=== PATIENT | male | born 1950 | race Caucasian/White ===

== ENCOUNTER → 2017-02-17 | Outpatient (REF) | payer BC | LOC: M LAB REF 16:35 | PROVIDERS: ATTEND Internal Medicine | DX: R51 Headache (principal) ==

== ENCOUNTER → 2017-06-22 | Outpatient (CLI) | payer BC, MEDICARE ==
--- NOTE | 2017-06-26 09:02 | SLEEPCENT ---
DATE OF PROCEDURE: 06/22/2017 ORDERED BY: Bryanna Torres INTERPRETATION: Nocturnal polysomnography was performed due to concern for the obstructive sleep apnea syndrome in this patient with a history of excessive somnolence and nonrestorative sleep. 7 hours and 49 minutes of data were reviewed. There were 332 minutes of sleep identified. Sleep latency was prolonged at 12 minutes. REM latency was prolonged at 113 minutes. Sleep architecture showed fragmentation. Progression was well maintained. Overall sleep efficiency was 75%. The patient's EKG showed a sinus rhythm with an average heart rate of 75 beats per minutes. EEG showed normal wave forms for awake and sleep. There were 46 respiratory events identified of 10 seconds in duration or greater for an apnea-hypopnea index of 8.3. The events were primarily obstructive not exclusive to sleep stage nor body posture. Snoring was noted in the study and arousals from respiratory events occurred 2.7 times per hour. There was significant limb activity particularly early in the study. Limb movement arousal index was elevated at 9.6. IMPRESSION: 1. Obstructive sleep apnea syndrome (G47.33). Apnea-hypopnea index 8.3. 2. Periodic limb movement disorder (G47.61). Limb movement arousal index 9.6. RECOMMENDATION: The patient should be encouraged to return to the sleep disorder center for pressure therapy. In the interim, alcohol and sedative avoidance should be practiced and caution exercised during the operation of motor vehicles. Pending response to pressure therapy, interventions to reduce the frequency of arousal from limb activity may also be helpful. cc: Franklin Hutson Jr, MD
== END ==
LOC: M SLEEP 19:36
PROVIDERS: ATTEND Nurse Practitioner Adult Health
DX: G47.30 Sleep apnea, unspecified (principal)

== ENCOUNTER → 2017-10-09 | Outpatient (CLI) | payer MEDICARE ==
--- NOTE | 2017-10-10 14:53 | REP ---
REASON: History of influenza. FINDINGS: The superior mediastinal structures are midline. The cardiac silhouette is unremarkable in size, shape, and position. The diaphragmatic surfaces of the lungs are regular, and the costophrenic angles are clear. The pulmonary shanks are clear. The imaged osseous structures are intact. IMPRESSION: There is no acute cardiopulmonary disease. Signed by Kumar Santos DO 10/10/2017 02:57 P
== END ==
LOC: M WUC 14:05
PROVIDERS: ATTEND Physician Assistant
DX: J09.X2 Influenza due to identified novel influenza A virus with other respiratory manifestations (principal)

== ENCOUNTER → 2018-08-23 | Outpatient (CLI) | payer MEDICARE | LOC: M WUC 16:28 | DX: S16.1XXA Strain of muscle, fascia and tendon at neck level, initial encounter (principal); S29.012A Strain of muscle and tendon of back wall of thorax, initial encounter | CPT/HCPCS: 72052 ==

== ENCOUNTER → 2019-01-24 | Outpatient (REF) | payer MEDICARE ==
[2019-01-25 18:53] LABS: FOLATE 9.3 NG/ML
== END ==
LOC: M LAB REF 16:38
PROVIDERS: ATTEND Internal Medicine
DX: R68.82 Decreased libido (principal); G62.9 Polyneuropathy, unspecified

== ENCOUNTER → 2019-02-01 | Outpatient (REF) | payer MEDICARE | LOC: M LAB REF 09:29 | PROVIDERS: ATTEND Internal Medicine | DX: N52.9 Male erectile dysfunction, unspecified (principal); R68.82 Decreased libido ==

== ENCOUNTER → 2019-03-17 | Outpatient (CLI) | payer MEDICARE ==
[~2019-03-17] MED LIST: ISOVUE-370 76% 100ML VIAL (Q9967) As Ordered ONE
--- NOTE | 2019-03-17 18:15 | REP ---
REASON: Headaches. PRIORS: None. TECHNIQUE: 4.5 mm contiguous transaxial sections were obtained from the skull base to the cerebral convexities with thin cuts through the posterior fossa with and without the administration of intravenous contrast. FINDINGS: The ventricles and sulci are consistent with the patient's age. There are no extra-axial fluid collections. There is no mass effect on the non-contrast scan and there are no enhancing mass lesions on the post contrast scan. The deep cerebral white matter is consistent with the patient's age. The orbital and petrous structures, cerebellopontine angles and posterior fossa are unremarkable. The sella turcica, cavernous and paracavernous structures are essentially unremarkable. The visualized portions of the paranasal sinuses and mastoid air cells are clear. IMPRESSION: Essentially unremarkable CT examination of the brain. If the patient is a candidate for MRI it should be obtained as it is more sensitive in detecting intracranial lesions that could be responsible for causing headaches than is contrast enhanced CT. Electronically Signed by Kumar Santos DO 03/17/2019 07:04 P
== END ==
LOC: M RAD 16:44
PROVIDERS: ATTEND Physician Assistant
DX: R51 Headache (principal)
CPT/HCPCS: 70470; Q9967

== ENCOUNTER → 2019-03-17 | Outpatient (CLI) | payer MEDICARE ==
[2019-03-17 16:42] LABS: HEMATOCRIT 42.8 % (42.0-52.0); HEMOGLOBIN 13.9 g/dl (13.5-17.5); MEAN CORPUSCULAR HEMOGLOBIN 32.7 pg (27.0-33.0); MEAN CORPUSCULAR HGB CONC 32.5 g/dl (32.0-36.5); MEAN CORPUSCULAR VOLUME 100.7 fl (80.0-96.0); PLATELET COUNT, AUTOMATED 211 10^3/uL (150-450); RED BLOOD COUNT 4.25 10^6/uL (4.30-6.10); WHITE BLOOD COUNT 6.2 10^3/uL (4.0-10.0)
[2019-03-17 17:19] LABS: ERYTHROCYTE SEDIMENTATION RATE 21 mm/hr (0-20)
[2019-03-17 17:20] LABS: ALBUMIN 4.3 GM/DL (3.2-5.2); BILIRUBIN,TOTAL 0.6 MG/DL (0.2-1.0); C REACTIVE PROTEIN QUANTITATIV 0.3 MG/DL (0.00-0.30); CALCIUM LEVEL 8.9 MG/DL (8.8-10.2); CREATININE FOR GFR 1.31 MG/DL (0.70-1.30); FREE T4 0.86 NG/DL (0.76-1.46); GLOMERULAR FILTRATION RATE 58.3 (>49); POTASSIUM SERUM 5.7 MEQ/L (3.5-5.1); THYROID STIMULATING HORMONE 1.03 uIU/ML (0.358-3.740); TOTAL PROTEIN 8.1 GM/DL (6.4-8.2)
[2019-03-21 00:06] LABS: Lyme Disease IgG/IgM Antibodie <0.91 ISR (0.00-0.90); Lyme Disease IgM Ab Quantitati <0.80 index (0.00-0.79)
== END ==
LOC: M WUC 15:15
PROVIDERS: ATTEND Physician Assistant
DX: R51 Headache (principal)

== ENCOUNTER → 2019-03-30 | Outpatient (REF) | payer MEDICARE | LOC: M LAB REF 10:07 | PROVIDERS: ATTEND Surgery | DX: G44.89 Other headache syndrome (principal) ==

== ENCOUNTER → 2019-04-27 | Outpatient (REF) | payer MEDICARE | LOC: M LAB REF 17:34 | PROVIDERS: ATTEND Internal Medicine | DX: R79.82 Elevated C-reactive protein (CRP) (principal) ==

== ENCOUNTER → 2019-05-11 | Outpatient (REF) | payer MEDICARE | LOC: M LAB REF 16:46 | PROVIDERS: ATTEND Internal Medicine | DX: R79.82 Elevated C-reactive protein (CRP) (principal) ==

== ENCOUNTER → 2019-05-25 | Outpatient (REF) | payer MEDICARE | LOC: M LAB REF 16:58 | PROVIDERS: ATTEND Internal Medicine | DX: R79.82 Elevated C-reactive protein (CRP) (principal) ==

== ENCOUNTER → 2019-06-22 | Outpatient (REF) | payer MEDICARE | LOC: M LAB REF 17:04 | PROVIDERS: ATTEND Internal Medicine | DX: R51 Headache (principal); R79.82 Elevated C-reactive protein (CRP) ==

== ENCOUNTER → 2019-07-10 | Outpatient (REF) | payer MEDICARE | LOC: M LAB REF 17:31 | PROVIDERS: ATTEND Internal Medicine | DX: R79.82 Elevated C-reactive protein (CRP) (principal) ==

== ENCOUNTER → 2019-07-28 | Outpatient (REF) | payer MEDICARE | LOC: M LAB REF 11:45 | PROVIDERS: ATTEND Internal Medicine | DX: R51 Headache (principal); R79.82 Elevated C-reactive protein (CRP) ==

== ENCOUNTER → 2019-09-19 | Outpatient (REF) | payer MEDICARE ==
[2019-09-22 00:07] LABS: TESTOSTERONE FREE (DIRECT) 18.3 pg/mL (6.6-18.1)
== END ==
LOC: M LAB REF 16:47
PROVIDERS: ATTEND Internal Medicine
DX: R68.82 Decreased libido (principal); R79.82 Elevated C-reactive protein (CRP); N52.9 Male erectile dysfunction, unspecified

== ENCOUNTER → 2019-10-20 | Outpatient (CLI) | payer MEDICARE ==
--- NOTE | 2019-10-20 14:59 | REP ---
Two-view chest: 10/20/2019. Indication: Bronchitis. Cough. Comparison: 10/09/2017. Findings: The lungs are clear. There is no pleural effusion or pneumothorax. The cardiomediastinal silhouette is unremarkable. Impression: No acute cardiopulmonary process. Electronically Signed by Amor Diaz DO 10/20/2019 02:50 P
== END ==
LOC: M WUC 14:38
PROVIDERS: ATTEND Physician Assistant
DX: J20.9 Acute bronchitis, unspecified (principal); J01.10 Acute frontal sinusitis, unspecified

== ENCOUNTER → 2020-01-30 | Outpatient (REF) | payer MEDICARE | LOC: M LAB REF 16:48 | PROVIDERS: ATTEND Internal Medicine | DX: R68.82 Decreased libido (principal) ==

== ENCOUNTER → 2020-01-31 | Outpatient (CLI) | payer MEDICARE ==
--- NOTE | 2020-01-31 11:59 | REP ---
CHEST, TWO VIEWS: COMPARISON: 10/20/2019. There is no evidence of acute infiltrate. No pleural effusion is seen. The heart is normal in size. The mediastinal silhouette is unremarkable. The visualized osseous structures are intact. There are mild degenerative changes of the spine. IMPRESSION: No acute pulmonary disease. Electronically Signed by Bautista Acuna MD 01/31/2020 12:15 P
== END ==
LOC: M WUC 11:12
PROVIDERS: ATTEND Internal Medicine
DX: R05 Cough (principal); R06.02 Shortness of breath

== ENCOUNTER → 2020-10-30 | Outpatient (CLI) | payer MEDICARE ==
[~2020-10-30] MED LIST changes: +AMLO2.5C4 PO; +D31000TA2 PO; +FURO40TA2 PO; -ISOVUE-370 76% 100ML VIAL (Q9967) As Ordered ONE; +THERTAB52 PO; +ZALE10CA PO
== END ==
LOC: M LABSMTC 11:42
PROVIDERS: ATTEND Anesthesiology
DX: Z01.812 Encounter for preprocedural laboratory examination (principal); Z20.828 Contact with and (suspected) exposure to other viral communicable diseases

== ENCOUNTER 2020-11-04 07:12 | Day surgery (SDC) | payer MEDICARE ==
[~2020-11-04] VITALS: Ht 182.9 cm; Wt 99.8 kg
[~2020-11-04 07:12] MED LIST changes: +NS 1,000 ML IV ONE
[2020-11-04] MEDS ORDERED: LIDOCAINE 2% 100MG/5ML SDV (FOR ANES.) As Ordered ONE (07:13)
[2020-11-04] MEDS ORDERED: propofoL 200 MG/20 ML VIAL As Ordered ONE ×2 (07:13→08:32)
[2020-11-04] MEDS ORDERED: PHENYLephrine HCL 500 MCG/5 ML (100MCG/ML) SYRINGE (J2370) As Ordered ONE (08:36)
--- NOTE | 2020-11-04 08:42 | ROOR ---
Patient Name: Andrea Arnold Procedure Date: 11/04/2020 8:11 AM Date of : 1950 Age: 70 Room: [facility] Gender: Male Note Status: Finalized Procedure: Total Colonoscopy to Cecum + Cold Snare Polypectomy + Hemoclip Indications: High risk colon cancer surveillance: Personal history of colonic polyps, Last colonoscopy: 2013 Providers: Garland Frey MD Referring MD: ISSAC FULTON JR, MD Requesting Provider: Medicines: Monitored Anesthesia Care Complications: No immediate complications. Procedure: Pre-Anesthesia Assessment: - The heart rate, respiratory rate, oxygen saturations, blood pressure, adequacy of pulmonary ventilation, and response to care were monitored throughout the procedure. The Colonoscope was introduced through the anus and advanced to the cecum, identified by appendiceal orifice and ileocecal valve. The colonoscopy was performed without difficulty. The patient tolerated the procedure well. The quality of the bowel preparation was excellent. Findings: The perianal and digital rectal examinations were normal. Non-bleeding internal hemorrhoids were found during retroflexion. The hemorrhoids were small and Grade I (internal hemorrhoids that do not prolapse). Multiple small and large-mouthed diverticula were found in the recto-sigmoid colon, sigmoid colon and descending colon. A small polyp was found in the cecum. The polyp was sessile. The polyp was removed with a cold snare. Resection and retrieval were complete. To prevent bleeding after the polypectomy, one hemostatic clip was successfully placed (MR conditional). There was no bleeding at the end of the procedure. A small polyp was found at 40 cm proximal to the anus. The polyp was sessile. The polyp was removed with a cold snare. Resection and retrieval were complete. The exam was otherwise without abnormality on direct and retroflexion views. Impression: - Non-bleeding internal hemorrhoids. - Diverticulosis in the recto-sigmoid colon, in the sigmoid colon and in the descending colon. - One small polyp in the cecum, removed with a cold snare. Resected and retrieved. Clip (MR conditional) was placed. - One small polyp at 40 cm proximal to the anus, removed with a cold snare. Resected and retrieved. - The examination was otherwise normal on direct and retroflexion views. - The exam was otherwise normal to the cecum. Recommendation: - Patient has a contact number available for emergencies. The signs and symptoms of potential delayed complications were discussed with the patient. Return to normal activities tomorrow. Written discharge instructions were provided to the patient. - High fiber diet. - Discharge patient to home. - Continue present medications. - Await pathology results. - Telephone GI clinic for pathology results in 1 week. - Repeat colonoscopy in 5 years for surveillance based on pathology results. - Return to referring physician. - The findings and recommendations were discussed with the patient. Procedure Code(s): --- Professional --- 39713, Colonoscopy, flexible; with removal of tumor(s), polyp(s), or other lesion(s) by snare technique Diagnosis Code(s): --- Professional --- Z86.010, Personal history of colonic polyps K64.0, First degree hemorrhoids K63.5, Polyp of colon K57.30, Diverticulosis of large intestine without perforation or abscess without bleeding CPT copyright 2019 [employer]. All rights reserved. The codes documented in this report are preliminary and upon certified medication technician review may be revised to meet current compliance requirements. Garland Frey MD Garland Frey MD 11/04/2020 8:42:19 AM Electronically signed by Garland Frey MD Number of Addenda: 0 Note Initiated On: 11/04/2020 8:11 AM Estimated Blood Loss: Estimated blood loss: none.
[2020-11-04 09:00] VITALS: BP 132/89
== END 2020-11-04 09:20 | disposition home or self-care (01) ==
LOC: M OPP 07:12
PROVIDERS: ATTEND Internal Medicine Gastroenterology
DX: Z12.11 Encounter for screening for malignant neoplasm of colon (principal); Z86.010 Personal history of colon polyps; K64.0 First degree hemorrhoids; K63.5 Polyp of colon; K57.30 Diverticulosis of large intestine without perforation or abscess without bleeding
CPT/HCPCS: 45385; 88305; J2370

== ENCOUNTER → 2021-02-18 | Outpatient (REF) | payer MEDICARE ==
[~2021-02-18] MED LIST changes: -NS 1,000 ML IV ONE
[2021-02-19 19:15] LABS: FOLATE 17.9 NG/ML
== END ==
LOC: M LAB REF 16:34
PROVIDERS: ATTEND Internal Medicine
DX: G60.9 Hereditary and idiopathic neuropathy, unspecified (principal)

== ENCOUNTER → 2021-06-30 | Outpatient (CLI) | payer MEDICARE ==
--- NOTE | 2021-06-30 13:20 | REP ---
INDICATION: COUGH. COMPARISON: Comparison chest x-ray January 31, 2020. TECHNIQUE: Helical scanning is acquired. 3 mm axial images are generated. Coronal and sagittal MPR and coronal MIP images are generated. FINDINGS: Preliminary digital orbitread operator radiograph is unremarkable. Axial CT images demonstrate moderate diffuse fatty infiltration of the liver. There are some areas of fat sparing near the gallbladder. There are calcified golf stones in the dependent portion the gallbladder. A focal pancreatic calcification is seen in the body of the pancreas. Normal adrenal glands are observed bilaterally. There is no evidence of hilar or mediastinal mass or adenopathy. No pleural or pericardial effusion is seen. On lung window settings, there is a calcified granuloma in the right lower lobe just above the dome of the diaphragm displayed on page 79 of 129 in series 3 of today's study. There is also a noncalcified 3 mm pulmonary nodule in the left upper lobe displayed on page 44 of 129. No other pulmonary nodule is seen. No mass lesion is seen. There are mild scattered areas of subpleural fibrosis in the bases. Vascular calcification is noted in the aorta. There is also calcification in the region of the aortic valve and possibly, the mitral valve. IMPRESSION: 3 mm noncalcified pulmonary nodule left upper lobe. Scattered areas of mild subpleural fibrosis. No infiltrate is seen. Fatty infiltration of the liver. Cholelithiasis. <Electronically signed by Aleksey Ramirez > 06/30/21 [id number]
== END ==
LOC: M PLAIMG 10:26
PROVIDERS: ATTEND Nurse Practitioner Family
DX: R91.1 Solitary pulmonary nodule (principal); J98.4 Other disorders of lung; K76.0 Fatty (change of) liver, not elsewhere classified; K80.20 Calculus of gallbladder without cholecystitis without obstruction

== ENCOUNTER → 2021-07-03 | Outpatient (CLI) | payer MEDICARE ==
--- NOTE | 2021-07-08 18:05 | SLEEPCENT ---
DATE: 07/03/2021 ORDERED BY: BOBBI [place] Nocturnal polysomnography was performed for evaluation of sleep physiology in this patient with a history of excessive somnolence and nonrestorative sleep. Seven hours and 41 minutes of data were reviewed. There were 74.5 minutes of sleep identified. Sleep latency was prolonged at 113.5 minutes. No REM sleep was appreciated. Sleep architecture was poor with fragmentation and poor progression. Overall sleep efficiency was 16.7%. The electrocardiogram showed a sinus rhythm with an average heart rate of 90 beats per minute. Occasional unifocal ventricular ectopic beats were seen. Heart rate ranged between 70-115. EEG showed fairly normal waveforms for wake and sleep. Some alpha intrusion was appreciated. There were 158 respiratory events identified of 10 seconds in duration or greater for an apnea-hypopnea index of 127.2. The events were primarily obstructive, but 48 mixed and 3 central apneas were also seen. Respiratory events were not exclusive to sleep stage nor body posture. Arousals from respiratory events occurred 39.5 times per hour. There was some limb activity but no arousals related to limb activity. IMPRESSIONS: Severe obstructive sleep apnea syndrome (G47.33). Apnea-hypopnea index 127.2. RECOMMENDATION: The patient should be encouraged to return to the [facility] for pressure therapy. In the interim, alcohol and sedative avoidance should be practiced and caution exercised during the operation of motor vehicles. Given the frequency of central apneic events, a bilevel device and backup rate may be necessary during titration. cc: ISSAC FULTON M.D.
== END ==
LOC: M SLEEP 20:00
PROVIDERS: ATTEND Nurse Practitioner Family
DX: G47.33 Obstructive sleep apnea (adult) (pediatric) (principal)

== ENCOUNTER → 2021-08-07 | Outpatient (REF) | payer MEDICARE | LOC: M LAB REF 12:20 | PROVIDERS: ATTEND Internal Medicine | DX: E85.9 Amyloidosis, unspecified (principal) ==

== ENCOUNTER → 2021-08-22 | Outpatient (REF) | payer MEDICARE ==
[2021-08-22 17:32] LABS: PERCENT SATURATION 9.7 % (19.7-50.0)
[2021-08-22 17:41] LABS: FOLATE 7.5 NG/ML
[2021-08-25 21:07] LABS: ENDOMYSIAL ABY IgA Negative (Negative); TISSUE TRANSGLUTAMINASE IgA <2 U/mL (0-3)
== END ==
LOC: M LAB REF 16:32
PROVIDERS: ATTEND Internal Medicine
DX: R19.7 Diarrhea, unspecified (principal); R53.83 Other fatigue

== ENCOUNTER → 2021-10-02 | Outpatient (REF) | payer MEDICARE ==
[~2021-10-02] MED LIST changes: +ALBU8.5H INH; +AMLO-179 PO; -AMLO2.5C4 PO; +AMLO2.5C6 PO; +B-122500 PO; +FERR324T21 PO; +FLUT1INH2 INH; +MILK140C PO
== END ==
LOC: M LAB REF 15:02
PROVIDERS: ATTEND Specialist
DX: E85.9 Amyloidosis, unspecified (principal)

== ENCOUNTER → 2021-12-08 | Outpatient (CLI) | payer MEDICARE ==
[~2021-12-08] MED LIST changes: -ALBU8.5H INH; -AMLO-179 PO; -FLUT1INH2 INH
== END ==
LOC: M CARPUL 08:57
PROVIDERS: ATTEND Specialist
DX: E85.9 Amyloidosis, unspecified (principal)

== ENCOUNTER → 2021-12-18 | Outpatient (CLI) | payer MEDICARE ==
[~2021-12-18] MED LIST changes: +ALBU8.5H INH; +AMLO-179 PO; +FLUT1INH2 INH
== END ==
LOC: M PLAIMG 10:18
PROVIDERS: ATTEND Internal Medicine Pulmonary Disease
DX: R91.8 Other nonspecific abnormal finding of lung field (principal)

== ENCOUNTER → 2021-12-24 | Outpatient (CLI) | payer MEDICARE | LOC: M LABSMTC 10:27 | PROVIDERS: ATTEND Anesthesiology | DX: Z01.818 Encounter for other preprocedural examination (principal); Z11.52 Encounter for screening for COVID-19 ==

== ENCOUNTER 2021-12-29 10:32 | Day surgery (SDC) | payer MEDICARE ==
[~2021-12-29] VITALS: Ht 182.9 cm; Wt 99.3 kg
[~2021-12-29 10:32] MED LIST changes: -D31000TA2 PO; +NS 1,000 ML IV ONE; +VITA100093 PO
[2021-12-29] MEDS ORDERED: propofoL 200 MG/20 ML VIAL As Ordered ONE ×2 (10:36→11:09)
[2021-12-29] MEDS ORDERED: LIDOCAINE 2% 100MG/5ML SDV (FOR ANES.) As Ordered ONE (10:36)
[2021-12-29] MEDS ORDERED: fentaNYL 100 MCG/2 ML INJECTION As Ordered ONE (10:36)
[2021-12-29 11:50] VITALS: BP 151/105
== END 2021-12-29 11:51 | disposition home or self-care (01) ==
LOC: M OPP 10:32
PROVIDERS: ATTEND Internal Medicine Gastroenterology
DX: K22.89 Other specified disease of esophagus (principal); K44.9 Diaphragmatic hernia without obstruction or gangrene; K31.89 Other diseases of stomach and duodenum; D50.9 Iron deficiency anemia, unspecified; Z83.49 Family history of other endocrine, nutritional and metabolic diseases; Z86.010 Personal history of colon polyps; Z79.82 Long term (current) use of aspirin; Z79.899 Other long term (current) drug therapy; Z91.030 Bee allergy status
CPT/HCPCS: 43239; 88305; J3010

== ENCOUNTER 2022-08-29 22:29 | Emergency (ER) | payer MEDICARE ==
[~2022-08-29] VITALS: Ht 182.9 cm; Wt 101.8 kg
[~2022-08-29 22:29] MED LIST changes: -NS 1,000 ML IV ONE; +RA M200C4 PO
[2022-08-30 00:07] LABS: BASO # 0.1 10^3/uL (0.0-0.2); BASO % 1.1 % (0.0-1.0); EOS % 0.7 % (0.0-3.0); HEMATOCRIT 35.1 % (42.0-52.0); HEMOGLOBIN 11.6 g/dl (13.5-17.5); LYMPH # 0.9 10^3/uL (1.5-5.0); LYMPH % 15.1 % (24.0-44.0); MEAN CORPUSCULAR HEMOGLOBIN 34.8 pg (27.0-33.0); MEAN CORPUSCULAR VOLUME 105.4 fl (80.0-96.0); MONO # 0.5 10^3/uL (0.0-0.8); MONO % 8.2 % (2.0-8.0); NEUTROPHILS # 4.2 10^3/uL (1.5-8.5); NEUTROPHILS % 74.2 % (36.0-66.0); PLATELET COUNT, AUTOMATED 193 10^3/uL (150-450); RED BLOOD COUNT 3.33 10^6/uL (4.30-6.10); WHITE BLOOD COUNT 5.6 10^3/uL (4.0-10.0)
[2022-08-30 00:09] LABS: INR 0.92; PROTHROMBIN TIME 12.6 SECONDS (12.5-14.5)
[2022-08-30 00:10] LABS: PARTIAL THROMBOPLASTIN TIME 27.7 SECONDS (24.8-34.2)
[2022-08-30 00:28] LABS: CK-MB VALUE MASS 13.4 NG/ML (<3.6); MB/CK RELATIVE INDEX 3.92 (< OR =4)
[2022-08-30 00:31] LABS: RSV AMPLIFICATION NEGATIVE (NEGATIVE)
[2022-08-30 00:40] LABS: ALBUMIN 3.1 GM/DL (3.2-5.2); BILIRUBIN,DIRECT 0.3 MG/DL (0.0-0.2); BILIRUBIN,TOTAL 0.5 MG/DL (0.2-1.0); CALCIUM LEVEL 8.4 MG/DL (8.8-10.2); CREATININE FOR GFR 1.31 MG/DL (0.70-1.30); GLOMERULAR FILTRATION RATE 57.6 (>42); POTASSIUM SERUM 3.8 MEQ/L (3.5-5.1); THYROID STIMULATING HORMONE 1.13 uIU/ML (0.358-3.740); TOTAL PROTEIN 6.3 GM/DL (6.4-8.2)
[2022-08-30] MEDS ORDERED: ISOVUE-370 76% 100ML VIAL As Ordered ONE (01:03)
[2022-08-30 01:46] LABS: CK-MB VALUE MASS 12.7 NG/ML (<3.6); MB/CK RELATIVE INDEX 3.83 (< OR =4)
[2022-08-30 02:45] VITALS: BP 136/78
[2022-08-30] MEDS ORDERED: FAMO20TA PO (02:47)
== END 2022-08-30 03:24 | disposition home or self-care (01) ==
LOC: M ED 22:29
DX: R07.89 Other chest pain (principal); K30 Functional dyspepsia; R94.31 Abnormal electrocardiogram [ECG] [EKG]; K76.0 Fatty (change of) liver, not elsewhere classified; K80.20 Calculus of gallbladder without cholecystitis without obstruction; I25.10 Atherosclerotic heart disease of native coronary artery without angina pectoris; K86.2 Cyst of pancreas; I10 Essential (primary) hypertension; R73.03 Prediabetes; K21.9 Gastro-esophageal reflux disease without esophagitis; Z91.030 Bee allergy status; Z79.51 Long term (current) use of inhaled steroids; Z79.899 Other long term (current) drug therapy
CPT/HCPCS: 36415; 71045; 71275; 74177; 80048; 80076; 82550; 82553; 83690; 83880; 84443; 84484; 85025; 85610; 85730; 87631; 93005; 93041; 94760; 99285; Q9967

== ENCOUNTER 2022-09-07 14:14 | Emergency (ER) | payer MEDICARE ==
[~2022-09-07] VITALS: Ht 182.9 cm; Wt 102.3 kg
[~2022-09-07 14:14] MED LIST changes: +FAMO20TA PO
[2022-09-07] MEDS ORDERED: ZOLP10TA2 (15:15)
[2022-09-07] MEDS ORDERED: FAMO20TA5 (15:15)
[2022-09-07] MEDS ORDERED: [UNRECOGNIZED DRUG - CODE] (15:15)
[2022-09-07] MEDS ORDERED: LIDOCAINE W/EPINEPHRINE 1% 20ML VIAL SC ONE (16:45)
[2022-09-07 17:31] VITALS: BP 152/98
== END 2022-09-07 17:33 | disposition home or self-care (01) ==
LOC: M ED 14:14
DX: S01.511A Laceration without foreign body of lip, initial encounter (principal); W25.XXXA Contact with sharp glass, initial encounter; Y92.009 Unspecified place in unspecified non-institutional (private) residence as the place of occurrence of the external cause; I10 Essential (primary) hypertension; K21.9 Gastro-esophageal reflux disease without esophagitis; Z91.030 Bee allergy status; Z79.899 Other long term (current) drug therapy; Z79.51 Long term (current) use of inhaled steroids

== ENCOUNTER → 2022-10-14 | Outpatient (REF) | payer MEDICARE ==
[~2022-10-14] MED LIST changes: +FAMO20TA5; +ZOLP10TA2; +[UNRECOGNIZED DRUG - CODE]
[2022-10-15 17:35] LABS: FOLATE 12.1 NG/ML (>5.4)
== END ==
LOC: M LAB REF 16:22
PROVIDERS: ATTEND Internal Medicine
DX: R26.89 Other abnormalities of gait and mobility (principal)

== ENCOUNTER → 2022-12-11 | Outpatient (CLI) | payer MEDICARE ==
[~2022-12-11] MED LIST changes: +PROHANCE 279.3MG/ML 15ML VIAL As Ordered ONE; +PROHANCE 279.3MG/ML 5ML VIAL As Ordered ONE
== END ==
LOC: M RAD 15:52
PROVIDERS: ATTEND Internal Medicine
DX: R26.89 Other abnormalities of gait and mobility (principal); G60.9 Hereditary and idiopathic neuropathy, unspecified
CPT/HCPCS: 70553; A9576

== ENCOUNTER → 2023-08-05 | Outpatient (REF) | payer MEDICARE ==
[~2023-08-05] MED LIST changes: -FAMO20TA5; +FAMO20TA5 PO; +NALT50TA4 PO; +OMEP40CA5 PO; -PROHANCE 279.3MG/ML 15ML VIAL As Ordered ONE; -PROHANCE 279.3MG/ML 5ML VIAL As Ordered ONE; +THIA100T22 PO; -[UNRECOGNIZED DRUG - CODE]; +[UNRECOGNIZED DRUG - CODE] PO
[2023-08-05 17:54] LABS: FOLATE 17.8 NG/ML (>5.4)
== END ==
LOC: M LAB REF 16:26
PROVIDERS: ATTEND Internal Medicine
DX: G60.9 Hereditary and idiopathic neuropathy, unspecified (principal)

== ENCOUNTER → 2023-11-04 | Outpatient (CLI) | payer MEDICARE | LOC: M SLEEP 20:00 | PROVIDERS: ATTEND Internal Medicine Pulmonary Disease | DX: G47.33 Obstructive sleep apnea (adult) (pediatric) (principal) ==

== ENCOUNTER → 2024-01-02 | Outpatient (CLI) | payer MEDICARE | LOC: M SLEEP 20:00 | PROVIDERS: ATTEND Internal Medicine Pulmonary Disease | DX: G47.33 Obstructive sleep apnea (adult) (pediatric) (principal) ==

== ENCOUNTER → 2024-02-28 | Outpatient (REF) | payer MEDICARE | LOC: M LAB REF 17:34 | PROVIDERS: ATTEND Internal Medicine | DX: E85.9 Amyloidosis, unspecified (principal) ==

== ENCOUNTER → 2024-04-22 | Outpatient (CLI) | payer MEDICARE ==
[2024-04-22 16:46] LABS: BASO # 0.1 10^3/uL (0.0-0.2); BASO % 0.4 % (0.0-1.0); EOS # 0.1 10^3/uL (0.0-0.5); EOS % 0.7 % (0.0-3.0); HEMATOCRIT 35.6 % (42.0-52.0); HEMOGLOBIN 12.5 g/dl (13.5-17.5); LYMPH # 0.9 10^3/uL (1.5-5.0); LYMPH % 6.5 % (24.0-44.0); MEAN CORPUSCULAR HEMOGLOBIN 33.4 pg (27.0-33.0); MEAN CORPUSCULAR HGB CONC 35.1 g/dl (32.0-36.5); MEAN CORPUSCULAR VOLUME 95.2 fl (80.0-96.0); MONO # 1.2 10^3/uL (0.0-0.8); MONO % 9.2 % (2.0-8.0); NEUTROPHILS # 10.8 10^3/uL (1.5-8.5); NEUTROPHILS % 82.6 % (36.0-66.0); PLATELET COUNT, AUTOMATED 255 10^3/uL (150-450); RED BLOOD COUNT 3.74 10^6/uL (4.30-6.10); WHITE BLOOD COUNT 13.1 10^3/uL (4.0-10.0)
[2024-04-22 17:14] LABS: LIPASE 80 U/L (12-53)
[2024-04-22 17:15] LABS: AMYLASE 67 U/L (30-118)
[2024-04-22 17:16] LABS: ALBUMIN 2.7 G/DL (3.2-5.2); ALKALINE PHOSPHATASE 83 U/L (46-116); ALT/SGPT 57 U/L (7.0-40); AST/SGOT 42 U/L (<34); BILIRUBIN,TOTAL 0.6 MG/DL (0.3-1.2); BLOOD UREA NITROGEN 20 MG/DL (9-23); CALCIUM LEVEL 8.8 MG/DL (8.3-10.6); CARBON DIOXIDE LEVEL 25 MMOL/L (20-31); CHLORIDE LEVEL 108 MMOL/L (98-107); CREATININE FOR GFR 1.15 MG/DL (0.70-1.30); GLOMERULAR FILTRATION RATE > 60.0 (>42); GLUCOSE, FASTING 102 MG/DL (74-106); POTASSIUM SERUM 4.2 MMOL/L (3.5-5.1); SODIUM LEVEL 138 MMOL/L (136-145)
[2024-04-22 17:30] LABS: HEPATITIS B SURFACE ANTIGEN NEGATIVE (NEGATIVE)
[2024-04-22 17:51] LABS: HEPATITIS B CORE ANTIBODY IGM NEGATIVE (NEGATIVE); HEPATITIS C VIRUS ABY INDEX < 0.02 INDEX (<0.8)
== END ==
LOC: M RAD 15:53
PROVIDERS: ATTEND Physician Assistant
DX: R05.9 Cough, unspecified (principal); R63.4 Abnormal weight loss; R10.84 Generalized abdominal pain

== ENCOUNTER → 2024-04-24 | Outpatient (CLI) | payer MEDICARE ==
[~2024-04-24] MED LIST changes: +GASTROGRAFIN SOLUTION 30ML As Ordered ONE; +ISOVUE-370 76% 100ML VIAL As Ordered ONE
== END ==
LOC: M RAD 10:01
PROVIDERS: ATTEND Physician Assistant
DX: R05.9 Cough, unspecified (principal); R63.4 Abnormal weight loss; R10.84 Generalized abdominal pain; K86.2 Cyst of pancreas; K57.30 Diverticulosis of large intestine without perforation or abscess without bleeding; K80.20 Calculus of gallbladder without cholecystitis without obstruction
CPT/HCPCS: 74178; Q9963; Q9967

== ENCOUNTER → 2024-04-25 | Outpatient (REF) | payer MEDICARE ==
[~2024-04-25] MED LIST changes: -GASTROGRAFIN SOLUTION 30ML As Ordered ONE; -ISOVUE-370 76% 100ML VIAL As Ordered ONE
[2024-04-25 18:24] LABS: CA19-9 TUMOR MARKER,CARBOHYDRA 82.7 U/ML (<35.0)
== END ==
LOC: M LAB REF 16:28
PROVIDERS: ATTEND Physician Assistant Medical
DX: K86.9 Disease of pancreas, unspecified (principal); R97.0 Elevated carcinoembryonic antigen [CEA]; R97.8 Other abnormal tumor markers

== ENCOUNTER → 2024-04-28 | Outpatient (REF) | payer MEDICARE | LOC: M LAB REF 16:13 | PROVIDERS: ATTEND Physician Assistant Medical | DX: R30.0 Dysuria (principal) ==

== ENCOUNTER → 2024-05-05 | Outpatient (CLI) | payer MEDICARE ==
[~2024-05-05] MED LIST changes: +PROHANCE 279.3MG/ML 15ML VIAL As Ordered ONE; +PROHANCE 279.3MG/ML 5ML VIAL As Ordered ONE
== END ==
LOC: M RAD 06:57
PROVIDERS: ATTEND Physician Assistant Medical
DX: R63.4 Abnormal weight loss (principal); D37.8 Neoplasm of uncertain behavior of other specified digestive organs; K86.2 Cyst of pancreas; K76.0 Fatty (change of) liver, not elsewhere classified; D18.09 Hemangioma of other sites; K80.20 Calculus of gallbladder without cholecystitis without obstruction
CPT/HCPCS: 74183; A9576

== ENCOUNTER → 2024-10-23 | Outpatient (REF) | payer MEDICARE ==
[~2024-10-23] MED LIST changes: -PROHANCE 279.3MG/ML 15ML VIAL As Ordered ONE; -PROHANCE 279.3MG/ML 5ML VIAL As Ordered ONE
== END ==
LOC: M LAB REF 16:06
PROVIDERS: ATTEND Internal Medicine
DX: R30.0 Dysuria (principal)

== ENCOUNTER → 2025-02-19 | Outpatient (REF) | payer MEDICARE ==
[2025-02-19 15:35] LABS: LIPASE 37 U/L (12-53)
[2025-02-19 15:37] LABS: AMYLASE 54 U/L (30-118)
== END ==
LOC: M LAB REF 14:35
PROVIDERS: ATTEND Internal Medicine
DX: K86.9 Disease of pancreas, unspecified (principal)

== ENCOUNTER 2025-05-15 09:56 | Emergency (ER) | payer MEDICARE ==
[~2025-05-15] VITALS: Ht 182.9 cm; Wt 90.8 kg
[~2025-05-15 09:56] MED LIST changes: -ZOLP10TA2; +ZOLP10TA2 PO
[2025-05-15 10:04] VITALS: TEMP 97.1
[2025-05-15] MEDS ORDERED: CREO3600 (11:44)
[2025-05-15] MEDS ORDERED: TAMS1CAP17 PO (11:44)
[2025-05-15] MEDS ORDERED: HOME MED LIST COMPLETE! XX SCH (13:10)
[2025-05-15] MEDS ORDERED: FERR32TA PO (13:10)
[2025-05-15] MEDS ORDERED: ZALE10CA PO (13:10)
[2025-05-15 13:45] LABS: VENOUS BASE EXCESS -2.6 (-2.0-2.0); VENOUS HCO3 24.3 MMOL/L (23.0-27.0); VENOUS O2 SATURATION 62.8 % (60.0-80.0); VENOUS PARTIAL PRESSURE CO2 50.2 mmHg (38.0-50.0); VENOUS PARTIAL PRESSURE O2 38.9 mmHg (30.0-50.0); VENOUS PH 7.302 UNITS (7.330-7.430); VENOUS STANDARD HCO3 21.6 MMOL/L; VENOUS TOTAL CO2 25.8 MMOL/L (24.0-28.0)
[2025-05-15] MEDS: IPRATROPIUM 0.5 MG/ALBUTEROL 2.5 MG INH SOL UD 3 ML NEB PRN (13:55)
[2025-05-15 14:07] LABS: BASO # 0.1 10^3/uL (0.0-0.2); BASO % 1.1 % (0.0-1.0); EOS # 0.8 10^3/uL (0.0-0.5); EOS % 11.2 % (0.0-3.0); LYMPH # 1.5 10^3/uL (1.5-5.0); LYMPH % 20.1 % (24.0-44.0); MONO # 0.5 10^3/uL (0.0-0.8); MONO % 7.3 % (2.0-8.0); NEUTROPHILS # 4.4 10^3/uL (1.5-8.5); NEUTROPHILS % 59.9 % (36.0-66.0); PLATELET COUNT, AUTOMATED 205 10^3/uL (150-450)
[2025-05-15 14:10] LABS: ALT/SGPT 28.0 U/L (7.0-40); AST/SGOT 38.0 U/L (<34); CALCIUM LEVEL 8.3 MG/DL (8.3-10.6); CARBON DIOXIDE LEVEL 25.0 MMOL/L (20-31); CHLORIDE LEVEL 107.0 MMOL/L (98-107); CK-MB VALUE MASS 9.0 NG/ML (<3.6); CREATININE FOR GFR 0.98 MG/DL (0.70-1.30); GLOMERULAR FILTRATION RATE 81.4 (>42); POTASSIUM SERUM 4.6 MMOL/L (3.5-5.1); SODIUM LEVEL 144.0 MMOL/L (136-145)
[2025-05-15] MEDS ORDERED: ISOVUE-370 76% 100 ML VIAL As Ordered ONE (14:11)
[2025-05-15 14:19] LABS: INR 0.91
[2025-05-15 14:25] LABS: CPK CREATINE PHOSPHOKINASE 316.0 U/L (46-171); MB/CK RELATIVE INDEX 2.84 (< OR =4)
[2025-05-15 16:16] LABS: CK-MB VALUE MASS 8.9 NG/ML (<3.6)
[2025-05-15 16:21] LABS: CPK CREATINE PHOSPHOKINASE 302.0 U/L (46-171); MB/CK RELATIVE INDEX 2.94 (< OR =4)
[2025-05-15 16:30] VITALS: BP 139/74
[2025-05-15] MEDS ORDERED: AZIT-12 PO (16:38)
[2025-05-15 16:45] VITALS: O2SAT 94
== END 2025-05-15 17:02 | disposition home or self-care (01) ==
LOC: M ED 09:56
DX: J20.9 Acute bronchitis, unspecified (principal); I44.0 Atrioventricular block, first degree; E11.9 Type 2 diabetes mellitus without complications; I25.2 Old myocardial infarction; E78.5 Hyperlipidemia, unspecified; G47.33 Obstructive sleep apnea (adult) (pediatric); F10.10 Alcohol abuse, uncomplicated; Z91.030 Bee allergy status; Z79.51 Long term (current) use of inhaled steroids; Z79.2 Long term (current) use of antibiotics; Z79.899 Other long term (current) drug therapy; Z79.810 Long term (current) use of selective estrogen receptor modulators (SERMs)
CPT/HCPCS: 71275; 80047; 80048; 80076; 82550; 82553; 82803; 83605; 83880; 84145; 84443; 84484; 85025; 85610; 87486; 87581; 87633; 87798; 93005; 93041; 94640; 94760; 96374; 99285; J2919; Q9967

== ENCOUNTER 2025-06-05 14:48 | Emergency (ER) | payer MEDICARE ==
[~2025-06-05] VITALS: Ht 182.9 cm; Wt 90.0 kg
[~2025-06-05 14:48] MED LIST changes: +AZIT-12 PO; +CREO3600; +FERR32TA PO; +TAMS1CAP17 PO
[2025-06-05 14:51] VITALS: TEMP 98.1
[2025-06-05] MEDS: MORPHINE 4 MG/ML 1 ML VIAL IV ONE (17:15)
[2025-06-05 17:35] LABS: BASO # 0.0 10^3/uL (0.0-0.2); BASO % 0.4 % (0.0-1.0); EOS # 0.0 10^3/uL (0.0-0.5); EOS % 0.0 % (0.0-3.0); LYMPH # 0.6 10^3/uL (1.5-5.0); LYMPH % 5.7 % (24.0-44.0); MONO # 0.9 10^3/uL (0.0-0.8); MONO % 8.6 % (2.0-8.0); NEUTROPHILS # 8.6 10^3/uL (1.5-8.5); NEUTROPHILS % 85.0 % (36.0-66.0); PLATELET COUNT, AUTOMATED 212 10^3/uL (150-450)
[2025-06-05] MEDS: NS (Normal Saline) 0.9% 1,000 ML IV SCH (18:36)
[2025-06-05 19:02] VITALS: O2SAT 99
[2025-06-05] MEDS ORDERED: KETO-204 PO (19:44)
[2025-06-05] MEDS: OXYCODONE/APAP 5MG/325MG(HOME DOSE PACK) PO ONE (20:03)
[2025-06-05] MEDS: KETOROLAC 30 MG/ML 1 ML VIAL IV ONE (20:04)
[2025-06-05 20:05] VITALS: BP 148/89; O2SAT 97
== END 2025-06-05 20:23 | disposition home or self-care (01) ==
LOC: M ED 14:48
DX: S43.014A Anterior dislocation of right humerus, initial encounter (principal); Y92.019 Unspecified place in single-family (private) house as the place of occurrence of the external cause; Y93.9 Activity, unspecified; Y99.9 Unspecified external cause status; W01.0XXA Fall on same level from slipping, tripping and stumbling without subsequent striking against object, initial encounter; G47.33 Obstructive sleep apnea (adult) (pediatric); I10 Essential (primary) hypertension; E11.9 Type 2 diabetes mellitus without complications; F10.10 Alcohol abuse, uncomplicated; Z91.030 Bee allergy status; Z79.51 Long term (current) use of inhaled steroids; Z79.2 Long term (current) use of antibiotics; Z79.899 Other long term (current) drug therapy; Z79.810 Long term (current) use of selective estrogen receptor modulators (SERMs)
CPT/HCPCS: 23655; 73020; 73030; 80047; 85025; 93041; 94760; 96361; 96374; 96375; 99285; J1885

== ENCOUNTER → 2025-06-12 | Outpatient (CLI) | payer MEDICARE ==
[~2025-06-12] MED LIST changes: +KETO-204 PO
== END ==
LOC: M SOG 06:45
PROVIDERS: ATTEND Orthopaedic Surgery
DX: M25.511 Pain in right shoulder (principal)

== ENCOUNTER → 2025-06-26 | Outpatient (CLI) | payer MEDICARE | LOC: M RAD 14:44 | PROVIDERS: ATTEND Orthopaedic Surgery | DX: S43.014D Anterior dislocation of right humerus, subsequent encounter (principal); W18.30XD Fall on same level, unspecified, subsequent encounter ==

== ENCOUNTER → 2025-08-24 | Outpatient (REF) | payer MEDICARE ==
[~2025-08-24] MED LIST changes: +ZOLP10TA11 PO; -ZOLP10TA2 PO
== END ==
LOC: M LAB REF 14:28
PROVIDERS: ATTEND Internal Medicine
DX: N39.0 Urinary tract infection, site not specified (principal)

== ENCOUNTER → 2025-10-02 | Outpatient (CLI) | payer MEDICARE | LOC: M RAD 12:16 | PROVIDERS: ATTEND Internal Medicine | DX: N40.1 Benign prostatic hyperplasia with lower urinary tract symptoms (principal) ==